=== PATIENT | female | born 1995 | race Two or more races ===

== ENCOUNTER 2020-02-21 12:05 | Inpatient (IN) | payer MEDICAID ==
[~2020-02-21] VITALS: Ht 152.4 cm; Wt 86.2 kg
[~2020-02-21 12:05] MED LIST: FERR325T50 PO; PREN-96 PO
[2020-02-21] MEDS ORDERED: LACT. RINGERS/OXYTOCIN 20UNITS 1,000 ML IV SCH ×2 (12:48→19:17)
[2020-02-21] MEDS ORDERED: WITCH HAZEL-GLYCERIN PAD TOP PRN (13:00)
[2020-02-21] MEDS ORDERED: LIDOCAINE 2%HCL (LOCAL ANESTH.) INJ 20ML MDV ID PRN (13:00)
[2020-02-21] MEDS ORDERED: PHISODERM TOP SOLN 240ML BTL TOP PRN (13:00)
[2020-02-21] MEDS ORDERED: DERMOPLAST 60ML BOTTLE TOP PRN (13:00)
[2020-02-21] MEDS ORDERED: METHYLERGONOVINE MALEATE 0.2 MG/ML AMP IM PRN (13:00)
[2020-02-21] MEDS ORDERED: PENICILLIN G POT 5MIL/D5 50ML 50 ML IV ONE (13:00)
[2020-02-21] MEDS: LACTATED RINGER'S 1,000 ML IV SCH ×2 (13:18→16:40)
[2020-02-21 13:43] LABS: Eosinophils # (auto) 0.1 10 ^3/uL (0-0.8); Eosinophils % (auto) 0.6 % (0.0-7.0); Hematocrit 40.8 % (36.0-46.0); Hemoglobin 13.2 g/dL (12.2-16.2); Lymphocytes # (auto) 1.8 10 ^3/uL (0.4-5.4); Lymphocytes % (auto) 15.2 % (10.0-50.0); Monocytes # (auto) 0.7 10 ^3/uL (0-1.3); Neutrophils # (auto) 9.4 10 ^3/uL (1.6-8.6); Red Blood Cells 5.04 10^6/uL (4.0-5.20)
[2020-02-21 13:45] LABS: Basophils # (auto) 0 10 ^3/uL (0-0.2); Basophils % (auto) 0.3 % (0.0-2.0); Mean Corpuscular Hemoglobin 26.2 pg (28.0-32.0); Mean Corpuscular Hgb Conc. 32.4 g/dL (32.0-36.0); Monocytes % (auto) 5.9 % (0.0-12.0); Nucleated Red Blood Cells % 0.1 %; Platelet Count (auto) 312 10^3/uL (140-450); Red Cell Distribution Width 13.9 % (11.8-14.3); White Blood Cell 12.1 10^3/uL (4.4-10.8)
[2020-02-21 13:51] LABS: INR 0.97 (0.9-1.15); Partial Thromboplastin Time 27.6 sec (23.64-32.05)
[2020-02-21 13:53] LABS: Albumin 2.6 g/dL (3.4-5.0); Calcium 8.7 mg/dL (8.5-10.1); Potassium 3.4 mmol/L (3.5-5.1)
[2020-02-21 13:53] LABS: Alcohol, Urine < 3.0 mg/dL (0-5); Amphetamine Screen, Urine NEGATIVE (NEGATIVE); Barbiturate Scree,Urine NEGATIVE (NEGATIVE); Benzodiazephine Screen, Urine NEGATIVE (NEGATIVE); Cannabinoid Screen, Urine NEGATIVE (NEGATIVE); Cocaine Screen, Urine NEGATIVE (NEGATIVE); Opiate Scree,Urine NEGATIVE (NEGATIVE); Phencyclidine Screen, Urine NEGATIVE (NEGATIVE)
[2020-02-21 13:57] LABS: Bilirubin, Total 0.4 mg/dL (0.2-1.0); Total Protein 6.8 g/dL (6.4-8.2)
[2020-02-21] MEDS ORDERED: PROMETHAZINE HCL 25 MG/ML 1ML IV PRN (14:00)
[2020-02-21] MEDS ORDERED: BUTORPHANOL TARTRATE 2 MG/1 ML VIAL IV PRN (14:00)
[2020-02-21 14:04] LABS: Urine Bacteria FEW /hpf (None Seen); Urine Blood Negative /uL (Negative); Urine Specific Gravity 1.006 (1.001-1.035); Urine WBC 2 /hpf (0 - 5)
[2020-02-21 14:07] LABS: BUN/Creatinine Ratio 8.8
[2020-02-21] MEDS ORDERED: ePHEDrine SULFATE 50 MG/ML AMP IV ONE (16:30)
[2020-02-21] MEDS ORDERED: fentaNYL 200mCg/100ml W ROPIVA 100 ML EPI SCH (16:30)
[2020-02-21] MEDS ORDERED: NALOXONE HCL 0.4 MG/ML VIAL IV ONE (16:30)
[2020-02-21] MEDS ORDERED: PENICILLIN G POTASSIUM 2,500,000 UNITS in D5W 5% 50 ML IV SCH (17:00)
[2020-02-21] MEDS ORDERED: LACT. RINGERS/OXYTOCIN 20UNITS 500 ML IV ONE (18:17)
[2020-02-21] MEDS: IBUPROFEN 600 MG TAB PO PRN (21:15)
[2020-02-21 23:15] VITALS: BP 129/75
[2020-02-22 03:25] VITALS: BP 126/65
[2020-02-22 06:30] VITALS: BP 140/84
[2020-02-22] MEDS: IBUPROFEN 600 MG TAB PO PRN ×4 (06:59→21:41)
[2020-02-22 10:56] VITALS: BP 141/79
[2020-02-22 14:58] VITALS: BP 134/72
[2020-02-22] MEDS ORDERED: LABETALOL HCL 200 MG TAB PO SCH (22:00)
[2020-02-23 02:52] VITALS: BP 131/82
[2020-02-23 05:11] LABS: RPR Non Reactive (Non Reactive)
[2020-02-23] MEDS: IBUPROFEN 600 MG TAB PO PRN (05:19)
[2020-02-23 06:59] VITALS: BP 123/61
== END 2020-02-23 09:50 | disposition home or self-care (01) | DRG 560 ==
LOC: LDRP 12:05 → OBSVTOIN 12:47 → LDRP 14:09
PROVIDERS: ADMIT Specialist; ATTEND Specialist
PROC: 10D07Z6 Extraction of Products of Conception, Vacuum, Via Natural or Artificial Opening (ICD-10-PCS; principal; 2020-02-21)
PROC: 3E0R3BZ Introduction of Anesthetic Agent into Spinal Canal, Percutaneous Approach (ICD-10-PCS; 2020-02-21)
PROC: 00HU33Z Insertion of Infusion Device into Spinal Canal, Percutaneous Approach (ICD-10-PCS; 2020-02-21)
DX: O69.81X0 Labor and delivery complicated by cord around neck, without compression, not applicable or unspecified (principal); O16.5 Unspecified maternal hypertension, complicating the puerperium; O13.4 Gestational [pregnancy-induced] hypertension without significant proteinuria, complicating childbirth; Z37.0 Single live birth; Z3A.37 37 weeks gestation of pregnancy; Z11.59 Encounter for screening for other viral diseases
CPT/HCPCS: 36415; 59409; 62282; 80053; 80307; 81001; 81002; 84112; 84550; 85025; 85610; 85730; 86592; 86850; 86900; 86901; 94760; 96365; 96366; 96374; 96375; G0378; J2540; J2590; J7060

== ENCOUNTER 2024-03-10 09:22 | Observation (INO) | payer MEDICAID ==
[~2024-03-10] VITALS: Ht 152.4 cm; Wt 90.7 kg
[~2024-03-10 09:22] MED LIST changes: -FERR325T50 PO
[2024-03-10 10:13] LABS: Basophils # (auto) 0 10 ^3/uL (0-0.2); Eosinophils # (auto) 0 10 ^3/uL (0-0.8); Hemoglobin 12.2 g/dL (12.2-16.2); Mean Corpuscular Volume 79.1 fL (80.0-100.0)
[2024-03-10 10:14] LABS: Urine Bacteria FEW /hpf (None Seen); Urine Blood Negative /uL (Negative); Urine Budding Yeast OCCASIONAL /hpf (None Seen); Urine Clarity Clear (Clear); Urine Protein, UAD Negative (Negative); Urine Specific Gravity 1.004 (1.001-1.035); Urine Urobilinogen Normal (Negative); Urine WBC 1 /hpf (0 - 5)
[2024-03-10 10:15] LABS: Urine Color STRAW (Yellow)
[2024-03-10 10:15] LABS: Basophils % (auto) 0.2 % (0.0-2.0); Eosinophils % (auto) 0.3 % (0.0-7.0); Hematocrit 37.8 % (36.0-46.0); Lymphocytes # (auto) 1.6 10 ^3/uL (0.4-5.4); Lymphocytes % (auto) 11.4 % (10.0-50.0); Mean Corpuscular Hemoglobin 25.5 pg (28.0-32.0); Mean Corpuscular Hgb Conc. 32.2 g/dL (32.0-36.0); Monocytes # (auto) 1.2 10 ^3/uL (0-1.3); Neutrophils # (auto) 11.6 10 ^3/uL (1.6-8.6); Neutrophils % (auto) 80.1 % (37.0-80.0); Red Blood Cells 4.78 10^6/uL (4.0-5.20); Red Cell Distribution Width 14.8 % (11.8-14.3); White Blood Cell 14.5 10^3/uL (4.4-10.8)
[2024-03-10 10:19] LABS: INR 0.99 (0.9-1.15); Partial Thromboplastin Time 26.2 SEC (24.5-34.5); Prothrombin Time 10.5 sec (9.3-11.8)
[2024-03-10 10:22] LABS: Alanine Aminotransferase 14 U/L (7-40); Alkaline Phosphatase 113 U/L (46-116); Anion Gap 8 (5-15); Aspartate Aminotransferase 23 U/L (13-40); BUN/Creatinine Ratio 10.6 (10.0-20.0); Bilirubin, Total 0.5 mg/dL (0.2-1.0); Blood Urea Nitrogen < 5 mg/dL (9-23); Calcium 9.1 mg/dL (8.5-10.1); Carbon Dioxide 23 mmol/L (20-30); Chloride 108 mmol/L (98-107); Glucose 91 mg/dL (74-106); Potassium 2.9 mmol/L (3.5-5.1); Sodium 139 mmol/L (136-145); Total Protein 6.8 g/dL (5.7-8.2)
[2024-03-10 10:24] LABS: Protein, Urine 6.7 mg/dL (0.0-11.9)
[2024-03-10 10:27] LABS: Creatinine, Urine 23.06 mg/dL (30.0-125.0); Urine Protein/Creatinine Ratio 0.29
[2024-03-10 11:14] LABS: Uric Acid 3.9 mg/dL (3.1-7.8)
[2024-03-10] MEDS: POTASSIUM CHL 20 Meq TABLET PO ONE (11:15)
== END 2024-03-10 11:46 | disposition home or self-care (01) ==
LOC: LDRP 09:22 → UNDOADMOB 09:22 → LDRP 09:25 → UNDODISOB 11:46
PROVIDERS: ADMIT Obstetrics & Gynecology; ATTEND Obstetrics & Gynecology
DX: O24.419 Gestational diabetes mellitus in pregnancy, unspecified control (principal); O26.893 Other specified pregnancy related conditions, third trimester; R03.0 Elevated blood-pressure reading, without diagnosis of hypertension; Z3A.30 30 weeks gestation of pregnancy; Z86.2 Personal history of diseases of the blood and blood-forming organs and certain disorders involving the immune mechanism
CPT/HCPCS: 36415; 59025; 80053; 81001; 81002; 82570; 84156; 84550; 85025; 85610; 85730; 94760; G0378

== ENCOUNTER 2024-03-12 13:22 | Observation (INO) | payer MEDICAID ==
[2024-03-12 13:59] LABS: Protein, Urine 8.1 mg/dL (0.0-11.9)
[2024-03-12 14:23] LABS: 24 Hr. Total Protein, Urine 356.4 mg/24 Hr (<149.1)
== END 2024-03-12 14:48 | disposition home or self-care (01) ==
LOC: UNDOADMOB 13:22 → LDRP 13:22
PROVIDERS: ADMIT Obstetrics & Gynecology; ATTEND Obstetrics & Gynecology
DX: O62.9 Abnormality of forces of labor, unspecified (principal); O13.3 Gestational [pregnancy-induced] hypertension without significant proteinuria, third trimester; Z3A.30 30 weeks gestation of pregnancy
CPT/HCPCS: 59025; 81002; 84156; 94760; G0378

== ENCOUNTER 2024-03-17 15:06 | Observation (INO) | payer MEDICAID | END 2024-03-17 16:20 | disposition home or self-care (01) | LOC: UNDOADMOB 15:06 → LDRP 15:06 → UNDODISOB 16:20 | PROVIDERS: ADMIT Obstetrics & Gynecology; ATTEND Obstetrics & Gynecology | DX: O24.419 Gestational diabetes mellitus in pregnancy, unspecified control (principal); O16.3 Unspecified maternal hypertension, third trimester; Z3A.31 31 weeks gestation of pregnancy | CPT/HCPCS: 59025; 81002; 82948; G0378 ==

== ENCOUNTER 2024-03-20 15:10 | Observation (INO) | payer MEDICAID ==
[~2024-03-20] VITALS: Ht 152.4 cm; Wt 79.4 kg
[2024-03-25] MEDS: TERBUTALINE SULFATE 1 MG/ML 1ML VIAL SC SCH (11:47)
== END 2024-03-25 12:35 | disposition home or self-care (01) ==
LOC: UNDOADMOB 03-25 10:25 → LDRP 03-25 10:25 → UNDODISOB 03-25 12:35
PROVIDERS: ADMIT Obstetrics & Gynecology; ATTEND Obstetrics & Gynecology
DX: O24.419 Gestational diabetes mellitus in pregnancy, unspecified control (principal); O13.3 Gestational [pregnancy-induced] hypertension without significant proteinuria, third trimester; O60.03 Preterm labor without delivery, third trimester; Z3A.32 32 weeks gestation of pregnancy
CPT/HCPCS: 59025; 76818; 81002; 82948; 82962; 94760; 96372; G0378; J3105

== ENCOUNTER 2024-03-28 04:55 | Observation (INO) | payer MEDICAID ==
[~2024-03-28] VITALS: Ht 152.4 cm; Wt 88.9 kg
[2024-03-28] MEDS ORDERED: TERBUTALINE SULFATE 1 MG/ML 1ML VIAL SC SCH (10:15)
[2024-03-28] MEDS: LACTATED RINGER'S 1,000 ML IV SCH (10:37)
== END 2024-03-28 12:02 | disposition home or self-care (01) ==
LOC: LDRP 08:55
PROVIDERS: ADMIT Obstetrics & Gynecology; ATTEND Obstetrics & Gynecology
DX: O24.419 Gestational diabetes mellitus in pregnancy, unspecified control (principal); O60.03 Preterm labor without delivery, third trimester; O13.3 Gestational [pregnancy-induced] hypertension without significant proteinuria, third trimester; Z3A.32 32 weeks gestation of pregnancy
CPT/HCPCS: 59025; 76818; 81002; 82962; 96360; G0378

== ENCOUNTER 2024-04-01 13:07 | Observation (INO) | payer MEDICAID | END 2024-04-01 15:35 | disposition home or self-care (01) | LOC: LDRP 13:07 → UNDOADMOB 13:07 → LDRP 13:32 | PROVIDERS: ADMIT Obstetrics & Gynecology; ATTEND Obstetrics & Gynecology | DX: O13.3 Gestational [pregnancy-induced] hypertension without significant proteinuria, third trimester (principal); O60.03 Preterm labor without delivery, third trimester; O24.419 Gestational diabetes mellitus in pregnancy, unspecified control; Z3A.33 33 weeks gestation of pregnancy | CPT/HCPCS: 59025; 76818; 81002; 82948; 82962; 94760; G0378 ==

== ENCOUNTER 2024-04-04 04:59 | Observation (INO) | payer MEDICAID | END 2024-04-04 12:27 | disposition home or self-care (01) | LOC: LDRP 09:20 | PROVIDERS: ADMIT Obstetrics & Gynecology; ATTEND Obstetrics & Gynecology | DX: O24.419 Gestational diabetes mellitus in pregnancy, unspecified control (principal); O13.3 Gestational [pregnancy-induced] hypertension without significant proteinuria, third trimester; Z3A.33 33 weeks gestation of pregnancy | CPT/HCPCS: 59025; 76818; 81002; 82948; 82962; 94760; G0378 ==

== ENCOUNTER 2024-04-08 12:54 | Observation (INO) | payer MEDICAID | END 2024-04-08 15:37 | disposition home or self-care (01) | LOC: LDRP 12:54 → UNDOADMOB 12:54 → LDRP 13:39 | PROVIDERS: ADMIT Obstetrics & Gynecology; ATTEND Obstetrics & Gynecology | DX: O60.03 Preterm labor without delivery, third trimester (principal); O24.419 Gestational diabetes mellitus in pregnancy, unspecified control; Z3A.34 34 weeks gestation of pregnancy | CPT/HCPCS: 59025; 76818; 81002; 82948; 82962; 94760; G0378 ==

== ENCOUNTER 2024-04-11 08:10 | Observation (INO) | payer MEDICAID ==
[2024-04-11 09:44] LABS: Basophils # (auto) 0 10 ^3/uL (0-0.2); Hemoglobin 12.8 g/dL (12.2-16.2); Lymphocytes # (auto) 2.7 10 ^3/uL (0.4-5.4); Nucleated Red Blood Cells % 0.1 %; White Blood Cell 8.9 10^3/uL (4.4-10.8)
[2024-04-11 09:45] LABS: Basophils % (auto) 0.2 % (0.0-2.0); Eosinophils # (auto) 0.2 10 ^3/uL (0-0.8); Eosinophils % (auto) 1.7 % (0.0-7.0); Hematocrit 38.7 % (36.0-46.0); Lymphocytes % (auto) 30.5 % (10.0-50.0); Mean Corpuscular Hemoglobin 25.9 pg (28.0-32.0); Mean Corpuscular Volume 78.5 fL (80.0-100.0); Monocytes # (auto) 0.8 10 ^3/uL (0-1.3); Monocytes % (auto) 8.5 % (0.0-12.0); Neutrophils # (auto) 5.3 10 ^3/uL (1.6-8.6); Neutrophils % (auto) 59.1 % (37.0-80.0); Red Blood Cells 4.93 10^6/uL (4.0-5.20); Red Cell Distribution Width 15.2 % (11.8-14.3)
[2024-04-11 09:48] LABS: Urine Bacteria FEW /hpf (None Seen); Urine Blood Negative /uL (Negative); Urine Protein, UAD Negative (Negative); Urine Specific Gravity 1.003 (1.001-1.035); Urine Urobilinogen Normal (Negative); Urine WBC 1 /hpf (0 - 5)
[2024-04-11 09:49] LABS: Urine Color Light Yellow (Yellow)
[2024-04-11 09:50] LABS: Urine Clarity Hazy (Clear)
[2024-04-11 09:59] LABS: INR 0.98 (0.9-1.15); Partial Thromboplastin Time 27.4 SEC (24.5-34.5); Prothrombin Time 10.4 sec (9.3-11.8)
[2024-04-11 10:22] LABS: Protein, Urine 9.8 mg/dL (0.0-11.9)
[2024-04-11 10:24] LABS: Amphetamine Screen, Urine Neg (NEGATIVE); Barbiturate Scree,Urine Neg (NEGATIVE); Benzodiazephine Screen, Urine Neg (NEGATIVE); Cocaine Screen, Urine Neg (NEGATIVE); Opiate Scree,Urine Neg (NEGATIVE)
[2024-04-11 10:25] LABS: Cannabinoid Screen, Urine Neg (NEGATIVE); Creatinine, Urine 19.69 mg/dL (30.0-125.0); Phencyclidine Screen, Urine Neg (NEGATIVE); Urine Protein/Creatinine Ratio 0.5
[2024-04-11 10:28] LABS: Alanine Aminotransferase 17 U/L (7-40); Albumin 3.4 g/dL (3.2-4.8); Alkaline Phosphatase 135 U/L (46-116); Anion Gap 9 (5-15); Aspartate Aminotransferase 25 U/L (13-40); Bilirubin, Total 0.3 mg/dL (0.2-1.0); Calcium 8.9 mg/dL (8.7-10.4); Carbon Dioxide 19 mmol/L (20-30); Chloride 112 mmol/L (98-107); Glucose 94 mg/dL (74-106); Potassium 2.9 mmol/L (3.5-5.1); Sodium 140 mmol/L (136-145); Total Protein 6.2 g/dL (5.7-8.2); Uric Acid 3.9 mg/dL (3.1-7.8)
[2024-04-11] MEDS ORDERED: NIF10C PO (10:31)
[2024-04-11 10:43] LABS: BUN/Creatinine Ratio 11.4 (10.0-20.0); Blood Urea Nitrogen < 5 mg/dL (9-23)
== END 2024-04-11 11:12 | disposition home or self-care (01) ==
LOC: LDRP 08:10
PROVIDERS: ADMIT Obstetrics & Gynecology; ATTEND Obstetrics & Gynecology
DX: O60.03 Preterm labor without delivery, third trimester (principal); O24.419 Gestational diabetes mellitus in pregnancy, unspecified control; Z3A.34 34 weeks gestation of pregnancy; Z79.899 Other long term (current) drug therapy; Z86.2 Personal history of diseases of the blood and blood-forming organs and certain disorders involving the immune mechanism
CPT/HCPCS: 36415; 59025; 76818; 80053; 80307; 81001; 81002; 82570; 82948; 82962; 84156; 84550; 85025; 85610; 85730; 94760; G0378

== ENCOUNTER 2024-04-13 08:12 | Observation (INO) | payer MEDICAID ==
[~2024-04-13 08:12] MED LIST changes: +NIF10C PO
[2024-04-13 10:00] LABS: Protein, Urine < 6.0 mg/dL (0.0-11.9)
[2024-04-13 10:02] LABS: Creatinine, Urine 12.31 mg/dL (30.0-125.0); Urine Protein/Creatinine Ratio 0.49
[2024-04-13 10:06] LABS: Urine Bacteria FEW /hpf (None Seen); Urine Blood Negative /uL (Negative); Urine Clarity Clear (Clear); Urine Protein, UAD Negative (Negative); Urine Specific Gravity 1.002 (1.001-1.035); Urine Urobilinogen Normal (Negative); Urine WBC 2 /hpf (0 - 5)
[2024-04-13 10:09] LABS: Urine Color Light Yellow (Yellow)
[2024-04-13 10:40] LABS: Protein, Urine < 6.0 mg/dL (0.0-11.9)
[2024-04-13 11:22] LABS: 24 Hr. Total Protein, Urine < 273.0 mg/24 Hr (<149.1); Urine Total Volume, 24 Hours 4550 mL
[2024-04-14] MEDS ORDERED: URSO300C2 PO (10:53)
== END 2024-04-13 11:53 | disposition home or self-care (01) ==
LOC: LDRP 08:12 → UNDOADMOB 08:12 → LDRP 08:16
PROVIDERS: ADMIT Obstetrics & Gynecology; ATTEND Obstetrics & Gynecology
DX: O24.419 Gestational diabetes mellitus in pregnancy, unspecified control (principal); O13.3 Gestational [pregnancy-induced] hypertension without significant proteinuria, third trimester; Z3A.34 34 weeks gestation of pregnancy
CPT/HCPCS: 59025; 76818; 81001; 82570; 82948; 82962; 84156; 94760; G0378

== ENCOUNTER 2024-04-14 10:20 | Observation (INO) | payer MEDICAID ==
[2024-04-14] MEDS ORDERED: URSO300C2 PO (10:53)
[2024-04-14 12:28] LABS: Alanine Aminotransferase 12 U/L (7-40); Albumin 3.5 g/dL (3.2-4.8); Alkaline Phosphatase 148 U/L (46-116); Anion Gap 7 (5-15); Aspartate Aminotransferase 27 U/L (13-40); Calcium 9.1 mg/dL (8.5-10.1); Carbon Dioxide 21 mmol/L (20-30); Chloride 110 mmol/L (98-107); Glucose 85 mg/dL (74-106); Potassium 2.8 mmol/L (3.5-5.1); Sodium 138 mmol/L (136-145)
[2024-04-14 12:29] LABS: Bilirubin, Total 0.5 mg/dL (0.2-1.0); Total Protein 6.1 g/dL (5.7-8.2)
[2024-04-14 12:33] LABS: BUN/Creatinine Ratio 10.2 (10.0-20.0); Blood Urea Nitrogen < 5 mg/dL (9-23)
== END 2024-04-14 12:11 | disposition home or self-care (01) ==
LOC: LDRP 10:20 → UNDOADMOB 10:20 → LDRP 10:35 → UNDODISOB 12:11
PROVIDERS: ADMIT Obstetrics & Gynecology; ATTEND Obstetrics & Gynecology
DX: O24.419 Gestational diabetes mellitus in pregnancy, unspecified control (principal); O60.03 Preterm labor without delivery, third trimester; O26.893 Other specified pregnancy related conditions, third trimester; L29.9 Pruritus, unspecified; Z3A.35 35 weeks gestation of pregnancy
CPT/HCPCS: 36415; 59025; 80053; 94760; G0378

== ENCOUNTER 2024-04-16 07:46 | Observation (INO) | payer MEDICAID ==
[~2024-04-16 07:46] MED LIST changes: +URSO300C2 PO
[2024-04-16 18:05] LABS: Urine Bacteria FEW /hpf (None Seen); Urine Blood Negative /uL (Negative); Urine Clarity Clear (Clear); Urine Color Colorless (Yellow); Urine Protein, UAD Negative (Negative); Urine Specific Gravity 1.005 (1.001-1.035); Urine Urobilinogen Normal (Negative); Urine WBC 3 /hpf (0 - 5)
[2024-04-16 18:09] LABS: Protein, Urine 9.6 mg/dL (0.0-11.9)
[2024-04-16 18:12] LABS: Creatinine, Urine 32.35 mg/dL (30.0-125.0); Urine Protein/Creatinine Ratio 0.3
== END 2024-04-16 18:38 | disposition home or self-care (01) ==
LOC: UNDOADMOB 16:10 → LDRP 16:10 → UNDODISOB 18:38
PROVIDERS: ADMIT Obstetrics & Gynecology; ATTEND Obstetrics & Gynecology
DX: O24.419 Gestational diabetes mellitus in pregnancy, unspecified control (principal); O60.03 Preterm labor without delivery, third trimester; O26.643 Intrahepatic cholestasis of pregnancy, third trimester; K83.1 Obstruction of bile duct; O10.913 Unspecified pre-existing hypertension complicating pregnancy, third trimester; Z3A.35 35 weeks gestation of pregnancy
CPT/HCPCS: 59025; 76818; 81001; 81002; 82570; 82948; 82962; 84156; 94760; G0378

== ENCOUNTER 2024-04-20 09:04 | Observation (INO) | payer MEDICAID | END 2024-04-20 12:25 | disposition home or self-care (01) | LOC: UNDOADMOB 10:27 → LDRP 10:27 → UNDODISOB 12:25 | PROVIDERS: ADMIT Obstetrics & Gynecology; ATTEND Obstetrics & Gynecology | DX: O26.643 Intrahepatic cholestasis of pregnancy, third trimester (principal); K83.1 Obstruction of bile duct; O24.419 Gestational diabetes mellitus in pregnancy, unspecified control; O13.3 Gestational [pregnancy-induced] hypertension without significant proteinuria, third trimester; O62.9 Abnormality of forces of labor, unspecified; Z3A.35 35 weeks gestation of pregnancy | CPT/HCPCS: 59025; 76818; 81002; 82948; 82962; 94760; G0378 ==

== ENCOUNTER 2024-04-21 10:53 | Observation (INO) | payer MEDICAID ==
[2024-04-21 11:49] LABS: Basophils # (auto) 0 10 ^3/uL (0-0.2); Basophils % (auto) 0.2 % (0.0-2.0); Eosinophils # (auto) 0.1 10 ^3/uL (0-0.8); Monocytes # (auto) 0.5 10 ^3/uL (0-1.3)
[2024-04-21 11:55] LABS: Eosinophils % (auto) 0.8 % (0.0-7.0); Hematocrit 39.4 % (36.0-46.0); Lymphocytes % (auto) 23.1 % (10.0-50.0); Mean Corpuscular Hgb Conc. 33.1 g/dL (32.0-36.0); Mean Corpuscular Volume 78.7 fL (80.0-100.0); Monocytes % (auto) 6.3 % (0.0-12.0); Neutrophils % (auto) 69.6 % (37.0-80.0); Nucleated Red Blood Cells % 0.1 %; Red Cell Distribution Width 15.5 % (11.8-14.3); White Blood Cell 8.7 10^3/uL (4.4-10.8)
[2024-04-21 12:07] LABS: Alanine Aminotransferase 10 U/L (7-40); Albumin 3.6 g/dL (3.2-4.8); Alkaline Phosphatase 159 U/L (46-116); Anion Gap 11 (5-15); Aspartate Aminotransferase 16 U/L (13-40); Bilirubin, Total 0.4 mg/dL (0.2-1.0); Calcium 9.1 mg/dL (8.7-10.4); Carbon Dioxide 20 mmol/L (20-30); Chloride 110 mmol/L (98-107); Glucose 100 mg/dL (74-106); Potassium 2.8 mmol/L (3.5-5.1); Sodium 141 mmol/L (136-145); Total Protein 6.4 g/dL (5.7-8.2); Uric Acid 4.7 mg/dL (3.1-7.8)
[2024-04-21 12:12] LABS: BUN/Creatinine Ratio 9.6 (10.0-20.0); Blood Urea Nitrogen < 5 mg/dL (9-23)
[2024-04-21 12:27] LABS: INR 0.93 (0.9-1.15); Partial Thromboplastin Time 27.1 SEC (24.5-34.5); Prothrombin Time 9.9 sec (9.3-11.8)
[2024-04-21 15:13] LABS: Urine Bacteria FEW /hpf (None Seen); Urine Blood Negative /uL (Negative); Urine Clarity Clear (Clear); Urine Color Light-Yellow (Yellow); Urine Protein, UAD Negative (Negative); Urine Specific Gravity 1.005 (1.001-1.035); Urine Urobilinogen Normal (Negative); Urine WBC 1 /hpf (0 - 5)
[2024-04-21 15:31] LABS: Protein, Urine 13.8 mg/dL (0.0-11.9)
[2024-04-21 15:33] LABS: Creatinine, Urine 26.66 mg/dL (30.0-125.0); Urine Protein/Creatinine Ratio 0.52
== END 2024-04-21 13:40 | disposition home or self-care (01) ==
LOC: LDRP 10:53 → UNDOADMOB 10:53 → LDRP 10:59 → UNDODISOB 13:40
PROVIDERS: ADMIT Obstetrics & Gynecology; ATTEND Obstetrics & Gynecology
DX: O24.419 Gestational diabetes mellitus in pregnancy, unspecified control (principal); O14.93 Unspecified pre-eclampsia, third trimester; O13.3 Gestational [pregnancy-induced] hypertension without significant proteinuria, third trimester; O26.643 Intrahepatic cholestasis of pregnancy, third trimester; K83.1 Obstruction of bile duct; Z3A.36 36 weeks gestation of pregnancy
CPT/HCPCS: 36415; 59025; 76818; 80053; 81001; 81002; 82570; 82948; 82962; 84156; 84550; 85025; 85610; 85730; 94760; G0378

== ENCOUNTER 2024-04-23 09:27 | Inpatient (IN) | payer MEDICAID ==
[~2024-04-23] VITALS: Ht 152.4 cm; Wt 92.5 kg
[2024-04-23 13:44] LABS: Urine Bacteria FEW /hpf (None Seen); Urine Blood Negative /uL (Negative); Urine Clarity Clear (Clear); Urine Color Light-Yellow (Yellow); Urine Protein, UAD TRACE (Negative); Urine Specific Gravity 1.006 (1.001-1.035); Urine Urobilinogen Normal (Negative); Urine WBC 1 /hpf (0 - 5)
[2024-04-23 14:09] LABS: Protein, Urine 26.7 mg/dL (0.0-11.9)
[2024-04-23 14:09] LABS: Protein, Urine 14.4 mg/dL (0.0-11.9)
[2024-04-23 14:12] LABS: Creatinine, Urine 44.85 mg/dL (30.0-125.0); Urine Protein/Creatinine Ratio 0.6
[2024-04-23] MEDS: LABETALOL HCL 200 MG TAB PO ONE (14:54)
[2024-04-23 15:36] LABS: Basophils # (auto) 0 10 ^3/uL (0-0.2); Eosinophils # (auto) 0.1 10 ^3/uL (0-0.8); Monocytes # (auto) 0.8 10 ^3/uL (0-1.3); Nucleated Red Blood Cells % 0.1 %
[2024-04-23 15:37] LABS: Amphetamine Screen, Urine Neg (NEGATIVE); Benzodiazephine Screen, Urine Neg (NEGATIVE)
[2024-04-23 15:38] LABS: Basophils % (auto) 0.4 % (0.0-2.0); Eosinophils % (auto) 1.2 % (0.0-7.0); Hematocrit 39.2 % (36.0-46.0); Lymphocytes # (auto) 2.5 10 ^3/uL (0.4-5.4); Lymphocytes % (auto) 28.6 % (10.0-50.0); Mean Corpuscular Hemoglobin 26.2 pg (28.0-32.0); Mean Corpuscular Hgb Conc. 33.3 g/dL (32.0-36.0); Mean Corpuscular Volume 78.8 fL (80.0-100.0); Monocytes % (auto) 9.2 % (0.0-12.0); Neutrophils # (auto) 5.4 10 ^3/uL (1.6-8.6); Neutrophils % (auto) 60.6 % (37.0-80.0); Red Blood Cells 4.98 10^6/uL (4.0-5.20); Red Cell Distribution Width 15.9 % (11.8-14.3); White Blood Cell 8.9 10^3/uL (4.4-10.8)
[2024-04-23 15:38] LABS: Barbiturate Scree,Urine Neg (NEGATIVE); Cannabinoid Screen, Urine Neg (NEGATIVE); Cocaine Screen, Urine Neg (NEGATIVE); Opiate Scree,Urine Neg (NEGATIVE); Phencyclidine Screen, Urine Neg (NEGATIVE)
[2024-04-23 15:57] LABS: Alanine Aminotransferase 10 U/L (7-40); Albumin 3.6 g/dL (3.2-4.8); Alkaline Phosphatase 162 U/L (46-116); Anion Gap 12 (5-15); Aspartate Aminotransferase 17 U/L (13-40); BUN/Creatinine Ratio 10.6 (10.0-20.0); Bilirubin, Total 0.4 mg/dL (0.2-1.0); Blood Urea Nitrogen < 5 mg/dL (9-23); Calcium 9.3 mg/dL (8.7-10.4); Carbon Dioxide 18 mmol/L (20-30); Chloride 112 mmol/L (98-107); Glucose 79 mg/dL (74-106); Sodium 142 mmol/L (136-145); Total Protein 6.3 g/dL (5.7-8.2); Uric Acid 4.2 mg/dL (3.1-7.8)
[2024-04-23 16:17] LABS: INR 0.97 (0.9-1.15); Partial Thromboplastin Time 26.8 SEC (24.5-34.5); Prothrombin Time 10.3 sec (9.3-11.8)
[2024-04-23] MEDS: hydrALAZINE HCL 20 MG/ML VL IV PRN (17:06)
== END 2024-04-23 18:20 | disposition short-term general hospital (02) | DRG 566 ==
LOC: LDRP 13:19 → OBSVTOIN 14:10 → INTOOBSV 14:10 → OBSVTOIN 16:10
PROVIDERS: ADMIT Obstetrics & Gynecology; ATTEND Obstetrics & Gynecology
DX: O24.410 Gestational diabetes mellitus in pregnancy, diet controlled (principal); K83.1 Obstruction of bile duct; O13.3 Gestational [pregnancy-induced] hypertension without significant proteinuria, third trimester; O26.643 Intrahepatic cholestasis of pregnancy, third trimester; Z3A.36 36 weeks gestation of pregnancy
CPT/HCPCS: 36415; 59025; 76818; 80053; 80307; 81001; 81002; 82570; 82948; 82962; 84156; 84550; 85025; 85610; 85730; 86850; 86900; 86901; 94760; 96374; G0378

== ENCOUNTER 2025-09-27 08:58 | Observation (INO) | payer MEDICAID ==
[~2025-09-27] VITALS: Ht 152.4 cm; Wt 90.7 kg
[~2025-09-27 08:58] MED LIST changes: -NIF10C PO; +NIFE10CA52 PO
--- NOTE | 2025-09-27 10:00 | DVH ---
BIOPHYSICAL PROFILE HISTORY: pelvic pain, headache, right epigastric pain Comparison Study: US BIOPHYSICAL PROFILE on DOS: 04/23/24, US BIOPHYSICAL PROFILE on DOS: 04/21/24, US BIOPHYSICAL PROFILE on DOS: 04/20/24, US BIOPHYSICAL PROFILE on DOS: 04/16/24, US BIOPHYSICAL PROFILE on DOS: 04/13/24 TECHNIQUE: Multiple real-time grayscale sonographic images through the gravid uterus of the fetus with duplex Doppler color flow and M-mode spectral analysis Findings/impression: Single intrauterine Cephalic presentation. Grade 2, posterior placenta without previa or abruption. heart rate 150 beats per minute MALIK measures 19.0 cm (deepest pocket 6.8 cm). Cervix appears closed and measures 4.1 cm.
[2025-09-27 10:20] LABS: Hematocrit 39.8 % (36.0-46.0); Nucleated Red Blood Cells % 0.1 %
[2025-09-27 10:23] LABS: Hemoglobin 13.3 g/dL (12.2-16.2); Mean Corpuscular Hemoglobin 26.7 pg (28.0-32.0); Mean Corpuscular Volume 80.1 fL (80.0-100.0)
[2025-09-27 10:35] LABS: Protein, Urine 24.9 mg/dL (1-14)
[2025-09-27 10:37] LABS: INR 0.99 (0.9-1.15); Partial Thromboplastin Time 27.4 SEC (24.5-34.5); Prothrombin Time 10.5 sec (9.3-11.8)
[2025-09-27 10:38] LABS: Alanine Aminotransferase 13 U/L (7-40); Albumin 3.6 g/dL (3.2-4.8); Alkaline Phosphatase 98 U/L (46-116); Anion Gap 14 (5-15); BUN/Creatinine Ratio 8.9 (10.0-20.0); Bilirubin, Total 0.3 mg/dL (0.2-1.0); Calcium 8.9 mg/dL (8.7-10.4); Carbon Dioxide 20 mmol/L (20-31); Chloride 107 mmol/L (98-107); Sodium 141 mmol/L (136-145); Total Protein 6.5 g/dL (5.7-8.2); Uric Acid 4.9 mg/dL (3.1-7.8)
[2025-09-27 10:43] LABS: Blood Urea Nitrogen 5 mg/dL (9-23); Glucose 171 mg/dL (74-106); Potassium 2.8 mmol/L (3.5-5.1)
[2025-09-27 10:45] LABS: Urine Protein, UAD Negative (Negative)
[2025-09-27] MEDS ORDERED: LABE300T5 PO (11:26)
[2025-09-27] MEDS: LABETALOL HCL 200 MG TAB PO ONE (11:46)
[2025-09-27] MEDS: BETAMETHASONE ACET (30mg/5ml) 5ml Vial 6mg/ml IM ONE (11:47)
[2025-09-27] MEDS: LACTATED RINGER'S 1,000 ML IV ONE (11:53)
--- NOTE | 2025-09-27 22:18 | DVHDS2 ---
Discharge Summary Date of Admission Sep 27, 2025 at 08:58 Date of Discharge: Sep 27, 2025 Admitting Diagnosis 27 weeks DOLAN, pelvic pressure rule out labor Wounds: none Labs/Diagnostic Data: Laboratory Results Test 09/27/25 09:56 09/27/25 09:20 White Blood Count 8.7 10^3/uL (4.4-10.8) Red Blood Count 4.97 10^6/uL (4.0-5.20) Hemoglobin 13.3 g/dL (12.2-16.2) Hematocrit 39.8 % (36.0-46.0) Mean Corpuscular Volume 80.1 fL (80.0-100.0) Mean Corpuscular Hemoglobin 26.7 pg (28.0-32.0) Mean Corpuscular Hemoglobin Concent 33.3 g/dL (32.0-36.0) Red Cell Distribution Width 13.8 % (11.8-14.3) Platelet Count 303 10^3/uL (140-450) Mean Platelet Volume 7.7 fL (6.9-10.8) Neutrophils (%) (Auto) 77.5 % (37.0-80.0) Lymphocytes (%) (Auto) 11.9 % (10.0-50.0) Monocytes (%) (Auto) 9.5 % (0.0-12.0) Eosinophils (%) (Auto) 0.9 % (0.0-7.0) Basophils (%) (Auto) 0.2 % (0.0-2.0) Neutrophils # (Auto) 6.8 10 ^3/uL (1.6-8.6) Lymphocytes # (Auto) 1.0 10 ^3/uL (0.4-5.4) Monocytes # (Auto) 0.8 10 ^3/uL (0-1.3) Eosinophils # (Auto) 0.1 10 ^3/uL (0-0.8) Basophils # (Auto) 0 10 ^3/uL (0-0.2) Nucleated Red Blood Cells 0.1 % Prothrombin Time 10.5 sec (9.3-11.8) Prothrombin Time INR 0.99 (0.9-1.15) Activated Partial Thromboplast Time 27.4 SEC (24.5-34.5) Sodium Level 141 mmol/L (136-145) Potassium Level 2.8 mmol/L (3.5-5.1) Chloride Level 107 mmol/L (98-107) Carbon Dioxide Level 20 mmol/L (20-31) Anion Gap 14 (5-15) Blood Urea Nitrogen 5 mg/dL (9-23) Creatinine 0.56 mg/dL (0.550-1.02) Glomerular Filtration Rate Calc 126 mL/min (>90) BUN/Creatinine Ratio 8.9 (10.0-20.0) Serum Glucose 171 mg/dL (74-106) Uric Acid 4.9 mg/dL (3.1-7.8) Calcium Level 8.9 mg/dL (8.7-10.4) Total Bilirubin 0.3 mg/dL (0.2-1.0) Aspartate Amino Transferase (AST) 23 U/L (13-40) Alanine Aminotransferase (ALT) 13 U/L (7-40) Alkaline Phosphatase 98 U/L (46-116) Total Protein 6.5 g/dL (5.7-8.2) Albumin 3.6 g/dL (3.2-4.8) Urine Color Colorless (Yellow) Urine Clarity Clear (Clear) Urine pH 7.0 (5.0-9.0) Urine Specific [place] 1.006 (1.001-1.035) Urine Protein Negative (Negative) Urine Ketones 1+ (Negative) Urine Blood Negative /uL (Negative) Urine Nitrite Negative (Negative) Urine Bilirubin Negative (Negative) Urine Urobilinogen Normal mg/dL (Negative) Urine Leukocyte Esterase Negative /uL (Negative) Urine RBC 1 /hpf (0 - 4) Urine Microscopic WBC 2 /HPF (0-5) Urine Squamous Epithelial Cells Few /hpf (<5) Urine Bacteria Many /hpf (None Seen) Urine Creatinine 45.62 mg/dL (30.0-125.0) Urine Protein/Creatinine Ratio 0.55 Urine Glucose Normal mg/dL (Normal) Urine Total Protein 24.9 mg/dL (1-14) Other Laboratory Tests 09/27/25 09:56 Brief Hx & Hospital Course: NST BPP reassuring Consults/Reason for consult none Operations or Procedures NST BPP Condition at Discharge: Good Final Diagnosis/Problems List 27 weeks DOLAN no labor reassuring heart tones Discharge Disposition: Home Discharge Instruct/Medications Diet: Regular Activity: No Restrictions, As Tolerated Activity comment: Kick counts labor precautions Follow Up/Referral: as scheduled Scheduled Labetalol Hcl (Labetalol Hcl), 300 MG PO BID, (Reported) Vit W/ Ferrous Fumara ( One Daily), 1 TAB PO DAILY, (Reported) Ursodiol (Ursodiol), 300 MG PO BID Discontinued Medications Nifedipine (Procardia Capsule), 10 MG PO Q6HR, (Reported) Discharge Statement: "Patient was advised to return to the ER or call 911 if any headaches, dizziness, shortness of breath, chest pain, abdominal pain, bleeding, fevers, or worsening of medical condition. Patient was counseled about treatment plan, medications, possible side effects, patientverbalized understanding. All questions were answered to the best of my ability. This discharge took greater then 30 minutes in planning, reviewing documentation, counseling the patient, and discussing with other team members." ASSESSMENT ASSESSMENT Assessment Visit Coding OBGYN Date of Service: Sep 27, 2025 Billing Provider: EUN MARTINEZ DO [employer] Common Visit Codes: 66585-[id number] INP/OBS CARE(HIGH), 52423-FFY/OBS SAME DATE (LOW), 35046-YPZ/OBS SAME DATE (MOD) [employer] Procedure Codes: 77851-24- NON-STRESS TEST EUN MARTINEZ DO Sep 27, 2025 22:18
[2025-09-30] MEDS ORDERED: LABE300T5 PO (13:14)
== END 2025-09-27 13:30 | disposition home or self-care (01) ==
LOC: LDRP 08:58
PROVIDERS: ADMIT Obstetrics & Gynecology; ATTEND Obstetrics & Gynecology
DX: O26.892 Other specified pregnancy related conditions, second trimester (principal); R51.9 Headache, unspecified; R10.20 Pelvic and perineal pain unspecified side; Z3A.27 27 weeks gestation of pregnancy; Z98.890 Other specified postprocedural states
CPT/HCPCS: 36415; 59025; 76815; 80053; 81001; 81002; 82570; 84156; 84550; 85025; 85610; 85730; 94760; 96360; 96361; 96372; A4649; G0378; J0702; 96374